=== PATIENT | female | born 1980 | race Caucasian/White ===

== ENCOUNTER → 2017-11-05 | Outpatient (CLI) | payer OTHER | LOC: M RAD 12:51 | DX: N63.0 Unspecified lump in unspecified breast (principal) ==

== ENCOUNTER → 2017-12-04 | Outpatient (CLI) | payer OTHER ==
[~2017-12-04] MED LIST: LIDOCAINE 1% MDV 20ML VIAL As Ordered
== END ==
LOC: M RADPRO 12:32
DX: N63.21 Unspecified lump in the left breast, upper outer quadrant (principal); N60.22 Fibroadenosis of left breast
CPT/HCPCS: 19083

== ENCOUNTER → 2019-01-13 | Outpatient (CLI) | payer OTHER ==
--- NOTE | 2019-01-13 11:37 | REP ---
ULTRASOUND LEFT BREAST: Real-time sonographic evaluation of the left breast performed and compared to a prior study of 11/05/2017. Once again, there is a solid nodule, which is slightly lobulated and hypoechoic in echotexture, wider than tall. This measures 2.7 x 1.6 x 2.4 cm. This has been biopsied since the prior ultrasound and was showed to represent a benign fibroadenoma. It has mildly increased in size since the prior study, at which time it measured 2.0 x 0.8 x 2.1 cm. IMPRESSION: ACR 2 benign. Biopsy proven fibroadenoma corresponding to a solid nodule at 1 -o'clock position left breast is again seen. It has slightly increased in size since the prior study of 11/05/2017. Electronically Signed by Isra Presley MD 01/13/2019 04:02 P
== END ==
LOC: M RAD 09:40
PROVIDERS: ATTEND Otolaryngology
DX: D24.2 Benign neoplasm of left breast (principal)

== ENCOUNTER → 2019-08-03 | Outpatient (CLI) | payer OTHER ==
[~2019-08-03] MED LIST changes: +ISOVUE-370 76% 100ML VIAL (Q9967) As Ordered ONE; -LIDOCAINE 1% MDV 20ML VIAL As Ordered
--- NOTE | 2019-08-04 08:05 | REP ---
Soft-tissue CT study of the neck with IV contrast: History: Left-sided neck mass. Sialolithiasis. CT contrast dose: 75 ml of intravenous Isovue 370. An opaque BB is affixed to the skin at the site of the palpable abnormality. Findings: Preliminary digital director of laboratory operations radiograph demonstrates a large calcific opacity overlying the posterior mandible. On axial CT images this is demonstrated along the anterior-superior margin of the left submandibular gland. It is a densely calcified triangular-shaped 12 mm sialolith. No cyst or dilated duct is appreciated. No soft tissue mass is seen. Parotid and submandibular glands are normal in size and symmetrical. Thyroid lobes are homogeneous. No neck mass or adenopathy is visible. The visualized paranasal sinuses are clear. No intraorbital abnormality is seen. Epiglottis and aryepiglottic folds are normal in appearance. The lung apices are clear. Impression: 12 mm left submandibular sialolith. Otherwise negative. Electronically Signed by Jesus Martínez MD 08/04/2019 10:23 A
== END ==
LOC: M RAD 17:13
PROVIDERS: ATTEND Specialist
DX: K11.5 Sialolithiasis (principal)
CPT/HCPCS: 70491; Q9967

== ENCOUNTER 2021-08-14 13:28 | Outpatient (CLI) | payer OTHER ==
[~2021-08-14] VITALS: Ht 162.6 cm; Wt 72.0 kg
[~2021-08-14 13:28] MED LIST changes: +ALBUTEROL 90 MCG/ACT 8GM HFA INHALER INH PRN; +ALBUTEROL SULFATE 2.5 MG/0.5 ML INH NEB SOLN INH PRN; +EPINEPHrine INJ 1 MG/ML 1ML AMP IM PRN; -ISOVUE-370 76% 100ML VIAL (Q9967) As Ordered ONE; +NS 1,000 ML IV SCH; +diphenhydrAMINE 50MG/ML VIAL (J1200) IV PRN; +methylPREDNISolone 125MG 2ML VIAL IV PRN
[2021-08-14 13:55] VITALS: BP 124/67
[2021-08-14 16:41] VITALS: BP 124/67
[2021-08-14 17:11] VITALS: BP 104/58
[2021-08-14 17:41] VITALS: BP 107/66
[2021-08-14] MEDS ORDERED: BAMLANIVIMAB 700 MG, ETESEVIMAB 1,400 MG in NS 250 ML IV ONE (18:00)
[2021-08-14 18:41] VITALS: BP 112/66
== END 2021-08-14 18:40 | disposition home or self-care (01) ==
LOC: M OPCLI4PR 13:28
DX: U07.1 COVID-19 (principal)